=== PATIENT | female | born 1950 | race African-American/Black ===

== ENCOUNTER 2017-08-24 12:53 | Emergency (ER) | payer MEDICARE, MEDICAID ==
[~2017-08-24] VITALS: Ht 160 cm; Wt 68.0 kg
[2017-08-24] MEDS ORDERED: FAMOTIDINE 20MG/2ML VIAL IV STA (17:06)
[2017-08-24] MEDS ORDERED: ONDANSETRON HCL 4MG/2ML VIAL IV STA (17:06)
[2017-08-24] MEDS ORDERED: MORPHINE SULFATE 4 MG/ML CPJ (NOT FOR IM USE) IV ONE (17:15)
[2017-08-24 17:25] LABS: CLARITY URINE CLEAR (CLEAR); COLOR URINE YELLOW (YELLOW); KETONES URINE NEGATIVE (NEGATIVE); LEUKOCYTE ESTERASE URINE NEGATIVE (NEGATIVE); NITRITE URINE NEGATIVE (NEGATIVE); OCCULT BLOOD URINE NEGATIVE (NEGATIVE); PH URINE 5.5 (4.5-8.0); PROTEIN URINE NEGATIVE (NEGATIVE); SPECIFIC GRAVITY URINE 1.021 (1.005-1.030)
[2017-08-24 18:02] LABS: BASOPHILS % 0.5 % (0.0-2.0); EOSINOPHILS % 2.2 % (0.0-5.0); HEMATOCRIT. 37.4 % (36.0-48.0); HEMOGLOBIN. 12.5 g/dL (12.0-16.0); MEAN CORPUSCULAR HEMOGLOBIN 29.6 pg (28.0-32.0); MEAN CORPUSCULAR VOLUME 88.4 fL (81.0-99.0); MEAN PLATELET VOLUME 8.7 fl (7.4-10.4); MONOCYTES % 7.1 % (2.0-8.0); NEUTROPHILS % 63.2 % (40.0-76.0); PLATELET 209 x1000/uL (130-400); RED BLOOD CELL COUNT 4.23 mill/uL (4.2-5.4); RED CELL DISTRIBUTION WIDTH 14.9 % (11.6-14.6)
[2017-08-24 18:05] LABS: CHLORIDE 110 mEq/L (98-107)
[2017-08-24 18:07] LABS: PROTHROMBIN TIME 10.4 sec (9.4-11.6)
[2017-08-24 18:15] LABS: CARBON DIOXIDE 24 mEq/L (21-32)
[2017-08-24] MEDS ORDERED: IOHEXOL-300 100 ML BOTTLE ONE (20:11)
[2017-08-24 23:51] VITALS: BP 144/77
== END 2017-08-24 23:52 | disposition home or self-care (01) ==
LOC: ER 14:17
DX: R10.12 Left upper quadrant pain (principal); R11.0 Nausea; I10 Essential (primary) hypertension; F17.200 Nicotine dependence, unspecified, uncomplicated; E05.90 Thyrotoxicosis, unspecified without thyrotoxic crisis or storm
CPT/HCPCS: 36415; 74177; 80053; 81003; 83690; 85025; 85610; 96374; 96375; 99285; J2270; J2405; J3490; J7030; Q9967